=== PATIENT | female | born 1985 | race African-American/Black ===

== ENCOUNTER 2017-01-05 04:39 | Day surgery (SDC) | payer BC ==
[2016-12-30 13:23] LABS: BASOPHILS 0.2 %; BASOPHILS ABSOLUTE 0.01 10/3/uL (0.0-0.16); EOSINOPHILS 0.6 %; EOSINOPHILS ABSOLUTE 0.03 10/3/uL (0.0-0.53); HEMATOCRIT 36.5 % (36.0-48.0); HEMOGLOBIN 12.9 g/dL (12.0-16.0); IMMATURE GRANULOCYTES 0.2 %; IMMATURE GRANULOCYTES ABSOLUTE 0.01 10/3/uL (0.0-0.11); LYMPHOCYTES 38.4 %; LYMPHOCYTES ABSOLUTE 1.79 10/3/uL (0.67-4.30); MANUAL DIFF NO %; MEAN CORPUS HGB CONC 35.3 g/dL (32.0-36.0); MEAN CORPUSCULAR HEMOGLOB 28.2 pg (26.0-34.0); MEAN CORPUSCULAR VOLUME 79.9 fL (80-100); MEAN PLATELET VOLUME 9.6 fL (9.2-13.0); MONOCYTES 4.3 %; NEUTROPHILS 56.3 %; NEUTROPHILS ABSOLUTE 2.62 10/3/uL (2.02-8.40); PLATELET COUNT 263 10/3/uL (150-400); RBC DISTRIBUTION WIDTH 13.5 % (12.0-16.0); RED CELL COUNT 4.57 10/6/uL (4.0-5.6); WHITE BLOOD CELLS 4.7 10/3/uL (4.5-10.5)
[2016-12-30 13:44] LABS: A/G RATIO 1.2 (0.7-1.9); ALBUMIN 3.8 G/DL (3.5-5.0); ALKALINE PHOSPHATASE 61 U/L (45-117); BUN (BLOOD UREA NITROGEN) 13 MG/DL (6-23); CHLORIDE, SERUM 108 MMOL/L (96-112); CO2 (CARBON DIOXIDE) 28 MMOL/L (24-34); CREATININE 0.73 MG/DL (0.55-1.02); GFR AFRICAN AMERICAN 129 ML/MIN (>=60); GFR NON AFRICAN AMERICAN 111 ML/MIN (>=60); GLOBULIN 3.2 G/DL (2.5-4.1); GLUCOSE, SERUM 80 MG/DL (60-99); POTASSIUM, SERUM 4.2 MMOL/L (3.5-5.3); SGOT(AST) 12 U/L (5-40); SGPT(ALT) 24 U/L (5-65); SODIUM, SERUM 142 MMOL/L (135-148); TOTAL BILIRUBIN 0.3 MG/DL (0-1.2)
--- NOTE | ~2017-01-05 | OP ---
Record Of Operation [facility] [address] [place] [place]. [address] NAME: TSESA BURNETT : 89 STATUS : [facility]#: [id number] AGE: 31 ADM/REG DATE : 01/05/17 MR#: [id number] REPORT SERV DATE: 01/07/17 DICTATED BY: SANFORD OG DATE: 01/07/17 REPORT STATUS : Draft TRANSCRIBED BY: WILMER DATE: 01/07/17 DATE OF PROCEDURE: 01/05/2017 PREOPERATIVE DIAGNOSIS: Umbilical hernia. POSTOPERATIVE DIAGNOSIS: Umbilical hernia. PROCEDURE PERFORMED: Repair of umbilical hernia. SURGEON: Sanford Og M.D. ANESTHESIA: General. ESTIMATED BLOOD LOSS: Minimal. SPECIMENS REMOVED: None. BRIEF HISTORY: Ms. Burnett is a 31-year-old female who presents with an umbilical hernia. This is growing, becoming tender and symptomatic. She presents today for repair. FINDINGS AT THE TIME OF PROCEDURE: This was a very small fascial defect and it was repaired primarily without mesh. DETAILS OF PROCEDURE: Following informed consent, the hernia was identified and marked by myself, confirmed by myself and the patient to be with proper site and location. The patient was then transferred to operative suite. After successful induction of anesthesia, her abdomen was prepped and draped in usual sterile fashion. A curvilinear skin incision was made overlying the umbilical hernia. Dissection carried through skin and subcutaneous tissues. The hernia sac was clearly defined. There was a small piece of trapped fatty tissue. The defect itself was only 5 mm. We reduced the contents and repaired this primarily using Ethibond sutures and this approximated nicely with minimal tension. The wound was then copiously irrigated. Skin edges reapproximated using 3-0 Vicryl subdermal followed by 4-0 Monocryl, subcuticular suture and Dermabond. At the completion of the case, all sponge and needle counts were correct. The patient was extubated and transferred to the recovery room in satisfactory condition having suffered no apparent perioperative complications. LOUIE/WILMER Sanford Og M.D. / [id number] Record Of Operation [facility] [place]. [address] NAME: TESSA BURNETT : 89 STATUS : [facility] PAT#: [id number] AGE: 31 ADM/REG DATE : 01/05/17 MR#: [id number] REPORT SERV DATE: 01/07/17 DICTATED BY: SANFORD OG DATE: 01/07/17 REPORT STATUS : Draft TRANSCRIBED BY: WILMER DATE: 01/07/17 CC: Moira Chavez M.D.
[~2017-01-05 04:39] MED LIST: NUVARING1 EACH V
== END 2017-01-05 11:45 | disposition home or self-care (01) ==
LOC: SDC 04:39
PROVIDERS: Surgery
PROC: 0WQF0ZZ Repair Abdominal Wall, Open Approach (ICD-10-PCS; principal; 2017-01-05 07:00)
DX: K42.9 Umbilical hernia without obstruction or gangrene (principal); D57.1 Sickle-cell disease without crisis; Z88.1 Allergy status to other antibiotic agents; Z79.899 Other long term (current) drug therapy; Z98.890 Other specified postprocedural states
CPT/HCPCS: 80053; 84703; 85025; 87641; A9270-GY; J0690; J2250; J2405; J2550; J2710; J3010